=== PATIENT | male | born 1975 | race Caucasian/White ===

== ENCOUNTER 2016-11-01 16:26 | Emergency (ER) | payer OTHER ==
[~2016-11-01] VITALS: Ht 180.3 cm; Wt 97.1 kg
[~2016-11-01 16:26] MED LIST: BACTRIM,SEPT1 TABLET PO; KEFLEX500 MG PO; MOTRIN800 MG PO
[2016-11-01 17:09] LABS: HEMATOCRIT 41.2 % (38.0-50.0); MCH 30.6 PG (29.0-34.0); MCHC 33.7 G/DL (30.0-36.0); MCV 90.7 FL (86-99); RBC DIS.WIDTH-CV 12.7 % (11.8-14.6); RED BLOOD COUNT 4.54 M/uL (4.00-5.50); WHITE BLOOD COUNT 11.6 K/uL (4.1-10.2)
[2016-11-01 17:30] LABS: TROP-I INTERPRETATION NEGATIVE; TROPONIN-I 0.01 ng/mL (0.0-0.30)
[2016-11-01 17:38] LABS: CHLORIDE 103 mEq/L (99-109); POTASSIUM 3.7 mEq/L (3.7-5.4); SODIUM 139 mEq/L (136-147)
[2016-11-01 17:40] LABS: GLUCOSE 111 mg/dL (70-99)
[2016-11-01 17:41] LABS: ANION GAP 10 MEQ/L (2-14)
[2016-11-01 17:44] LABS: GFR ESTIMATE (CALCULATED) > 59 mL/min/
[2016-11-01 17:45] LABS: UREA NITROGEN (BUN) 13 mg/dL (9-23)
[2016-11-01 17:57] LABS: MEAN PLAT.VOLUME 10.3 uM^3 (9.0-12.4); PLATELET COUNT 282 K/uL (156-360)
[2016-11-01] MEDS ORDERED: OMEPRAZOLE40 M1 PO (19:37)
[2016-11-01 20:39] LABS: TROP-I INTERPRETATION NEGATIVE; TROPONIN-I < 0.01 ng/mL (0.0-0.30)
[2016-11-01 20:51] VITALS: BP 171/97
== END 2016-11-01 21:11 | disposition home or self-care (01) ==
LOC: EME 16:26
PROVIDERS: Physician Assistant
DX: R07.9 Chest pain, unspecified (principal); F17.200 Nicotine dependence, unspecified, uncomplicated
CPT/HCPCS: 71020; 80048; 84484; 85027; 93005; 99281; 99285

== ENCOUNTER 2017-02-06 08:36 | Day surgery (SDC) | payer OTHER ==
[~2017-02-06] VITALS: Ht 180.3 cm; Wt 88.0 kg
[~2017-02-06 08:36] MED LIST changes: +BUPRENORPHINE HC2 MG SL; +LISINOPRIL10 MG PO; +LO-DOSE ASPIRIN81 M2 PO; +OMEPRAZOLE40 M1 PO; +PROTONIX40 MG PO; +VENTOLIN HFA18 GM IH
[2017-02-06] MEDS ORDERED: ASPIR 8181 M1 PO (09:19)
[2017-02-06] MEDS ORDERED: OMEPRAZOLE20 MG PO (09:19)
== END 2017-02-06 15:50 | disposition home or self-care (01) ==
LOC: CATH 08:36
DX: I42.9 Cardiomyopathy, unspecified (principal); I10 Essential (primary) hypertension; R53.1 Weakness; Z82.49 Family history of ischemic heart disease and other diseases of the circulatory system; Z80.0 Family history of malignant neoplasm of digestive organs; F17.210 Nicotine dependence, cigarettes, uncomplicated
CPT/HCPCS: 93005; C1750; C1769; C1887; J1200; J1644; J2250; J3010